=== PATIENT | male | born 1975 | race American Indian/Alaskan Native ===

== ENCOUNTER 2017-04-09 21:18 | Inpatient (IN) | payer OTHER ==
--- NOTE | 2017-04-09 22:17 | Emergency Department Report ---
ED Male HPI - General Chief complaint: Urogenital-Male Stated complaint: FREQ URINATION, BLURRED VISION Time Seen by Provider: 04/09/17 22:14 Source: patient Mode of arrival: Ambulatory Limitations: No Limitations - Related Data Previous Rx's Medication Instructions Recorded Last Taken Type Acetaminophen/Codeine [Tylenol #3] 1 tab PO Q6H PRN #30 tab 11/14/15 Unknown Rx Allergies Allergy/AdvReac Type Severity Reaction Status Date / Time No Known Allergies Allergy Unverified 11/14/15 11:15 ED Review of Systems ROS: Stated complaint: FREQ URINATION, BLURRED VISION Other details as noted in HPI ED Past Medical Hx - Past Medical History Previous Medical History?: No - Surgical History Past Surgical History?: No - Social History Smoking Status: Never Smoker Substance Use Type: None - Medications Home Medications: Home Medications Medication Instructions Recorded Confirmed Last Taken Type Acetaminophen/Codeine [Tylenol #3] 1 tab PO Q6H PRN #30 tab 11/14/15 Unknown Rx ED Physical Exam - General Limitations: No Limitations ED Course Vital Signs 04/09/17 21:46 Temperature 98 F Pulse Rate 81 Respiratory 18 Rate Blood Pressure 157/91 O2 Sat by Pulse 96 Oximetry Critical care attestation.: If time is entered above; I have spent that time in minutes in the direct care of this critically ill patient, excluding procedure time. ED Disposition Condition: Stable
[2017-04-09 22:27] LABS: BUN/Creatinine Ratio 11; Basophils % (Auto) 0.4 % (0.0-1.8); Blood Urea Nitrogen 11 mg/dL (9-20); Calcium 8.9 mg/dL (8.4-10.2); Eosinophils % (Auto) 0.3 % (0.0-4.3); Hematocrit 40.8 % (35.5-45.6); Hemoglobin 13.8 gm/dl (11.8-15.2); Hemolysis Index 16; Lymphocytes # (Auto) 2.1 K/mm3 (1.2-5.4); Lymphocytes % (Auto) 30.7 % (13.4-35.0); Mean Corpuscular HGB Conc 34 % (32-34); Mean Corpuscular Hemoglobin 29 pg (28-32); Mean Corpuscular Volume 85 fl (84-94); Monocytes # (Auto) 0.5 K/mm3 (0.0-0.8); Monocytes % (Auto) 7.5 % (0.0-7.3); Platelet Count 242 K/mm3 (140-440); Red Blood Count 4.79 M/mm3 (3.65-5.03); Red Cell Distribution Width 13.5 % (13.2-15.2)
--- NOTE | 2017-04-09 23:23 | Emergency Department Report ---
ED General Adult HPI - General Chief complaint: Urogenital-Male Stated complaint: FREQ URINATION, BLURRED VISION Time Seen by Provider: 04/09/17 22:14 Source: patient Mode of arrival: Ambulatory Limitations: No Limitations - History of Present Illness Initial comments: Has a family history of diabetes, began to have increased urination and thirst over the past 2 weeks. States he is concerned about being a diabetic. -: week(s) (2) Location: abdomen (GERD) Radiation: non-radiation Severity scale (0 -10): 4 Quality: other (burning) Consistency: constant Improves with: none Worsens with: none Associated Symptoms: nausea/vomiting, weakness Treatments Prior to Arrival: none - Related Data Previous Rx's Medication Instructions Recorded Last Taken Type Acetaminophen/Codeine [Tylenol #3] 1 tab PO Q6H PRN #30 tab 11/14/15 Unknown Rx Allergies Allergy/AdvReac Type Severity Reaction Status Date / Time No Known Allergies Allergy Unverified 11/14/15 11:15 ED Review of Systems ROS: Stated complaint: FREQ URINATION, BLURRED VISION Other details as noted in HPI Comment: All other systems reviewed and negative Constitutional: no symptoms reported Eyes: as per HPI ENT: as per HPI Respiratory: no symptoms reported, see HPI Cardiovascular: as per HPI Endocrine: no symptoms reported, see HPI, increased thirst, increased urine Gastrointestinal: as per HPI Genitourinary: as per HPI Musculoskeletal: as per HPI Skin: as per HPI Neurological: as per HPI Psychiatric: as per HPI Hematological/Lymphatic: as per HPI ED Past Medical Hx - Past Medical History Previous Medical History?: No - Surgical History Past Surgical History?: No - Social History Smoking Status: Never Smoker Substance Use Type: None - Medications Home Medications: Home Medications Medication Instructions Recorded Confirmed Last Taken Type Acetaminophen/Codeine [Tylenol #3] 1 tab PO Q6H PRN #30 tab 11/14/15 Unknown Rx ED Physical Exam - General Limitations: No Limitations General appearance: alert, in no apparent distress - Head Head exam: Present: atraumatic, normocephalic - Eye Eye exam: Present: normal appearance, PERRL, EOMI - ENT ENT exam: Present: normal exam, normal orophraynx, mucous membranes dry, mucous membranes moist - Neck Neck exam: Present: normal inspection - Respiratory Respiratory exam: Present: normal lung sounds bilaterally - Cardiovascular Cardiovascular Exam: Present: regular rate, normal rhythm - GI/Abdominal GI/Abdominal exam: Present: soft, normal bowel sounds - Extremities Exam Extremities exam: Present: normal inspection - Back Exam Back exam: Present: normal inspection - Neurological Exam Neurological exam: Present: alert, oriented X3 - Psychiatric Psychiatric exam: Present: normal affect - Skin Skin exam: Present: warm, dry, intact, normal color ED Course Vital Signs 04/09/17 04/09/17 21:46 22:25 Temperature 98 F 98.6 F Pulse Rate 81 73 Respiratory 18 16 Rate Blood Pressure 157/91 Blood Pressure 145/77 [Left] O2 Sat by Pulse 96 98 Oximetry - Reevaluation(s) Reevaluation #1: 04/09/17 23:34 Discussed need to control his BS with diet exercise and now he will require medications. We can't get serum ketones at the moment due to equipment malfunction, no anion gap noted though, awaiting ABG and UA. Will give insulin IV. Will call hospitalist. ED Medical Decision Making - Lab Data Result diagrams: 04/09/17 21:56 04/09/17 21:56 Critical care attestation.: If time is entered above; I have spent that time in minutes in the direct care of this critically ill patient, excluding procedure time. ED Disposition Clinical Impression: Diabetes mellitus Qualifiers: Diabetes mellitus type: type 2 Diabetes mellitus complication status: with hyperglycemia Diabetes mellitus [facility] insulin use: without salvage determiner use Qualified Code(s): E11.65 - Type 2 diabetes mellitus with hyperglycemia Disposition: 09 OP ADMIT IP TO THIS HOSP Is pt being admited?: Yes Does the pt Need Aspirin: No Condition: Stable Instructions: Diabetes Mellitus Type 2 in Adults (ED)
[2017-04-09] MEDS ORDERED: NACL 0.9% 1000 ML 1,000 ML IV ONE (23:30)
[2017-04-10 00:30] LABS: Bilirubin,Urine NEG (Negative); Blood,Urine NEG (Negative); Color,Urine Red (Yellow); Mucus,Urine FEW /HPF; Nitrite,Urine NEG (Negative); Protein,Urine <15 mg/dL mg/dL (Negative); Urobilinogen,Urine < 2.0 mg/dL (<2.0); WBC,Urine < 1.0 /HPF (0.0-6.0)
[2017-04-10] MEDS ORDERED: D50W (25GM) Syringe IV PRN ×2 (00:30→03:51)
[2017-04-10 00:59] LABS: BUN/Creatinine Ratio 15; Blood Urea Nitrogen 12 mg/dL (9-20); Calcium 9.4 mg/dL (8.4-10.2); Hemolysis Index 9
[2017-04-10] MEDS ORDERED: NovoLIN R 100 UNITS in NACL 0.9% 99 ML IV SCH (01:00)
[2017-04-10 03:04] LABS: BUN/Creatinine Ratio 17; Blood Urea Nitrogen 12 mg/dL (9-20); Calcium 8.9 mg/dL (8.4-10.2); Hemolysis Index 6
--- NOTE | 2017-04-10 03:53 | History and Physical Report ---
History of Present Illness Date of examination: 04/10/17 Date of admission: 04/10/17 01:35 Chief complaint: Polydipsia and polyuria History of present illness: 41-year-old -[place] male with no significant past medical history presented to the emergency department complaining of polyuria and polydipsia for the last 2 weeks. He has been drinking about 2 gallons of water a day. No fever or chills. No chest pain. Family history is significant for diabetes in multiple family members. In the emergency department blood sugar was 755 and anion gap was 23 he started management according to DKA protocol. REVIEW OF SYSTEMS: GENERAL: no weight change, + fatigue, no fever HEAD: no head ache EYES: no blurry vision, no acute visual loss EARS: no hearing loss, no discharge, no earache NOSE: no stuffiness, no sneezing, no discharge MOUTH, THROAT AND NECK: no bleeding gums, no sore throat, no swollen neck CARDIAC: no palpitations, no dyspnea on exertion, no orthopnea, no PND, no edema , no chest pain RESPIRATORY: no shortness of breath, no wheeze, no cough, no sputum, no hemoptysis, no asthma GI: no decreased appetite, no nausea, no vomiting, no dysphagia, no diarrhea, no constipation, no abdominal pain URINARY: no change in frequency, no urgency, no polyuria, no hematuria, no incontinence MUSCULOSKELETAL: no muscle weakness, no pain, no joint stiffness NEUROLOGIC: no loss of sensation/numbness, no tingling, no tremors, no weakness/ paralysis HEMATOLOGIC: no anemia, no easy bruising SKIN: no rashes ENDOCRINE: As stated in the HPI. PSYCHIATRIC: no anxiety, no depression, no suicidal ideations Past History Past Medical History: No medical history Past Surgical History: No surgical history Social history: full code. denies: smoking, alcohol abuse, prescription drug abuse, IV drug use Family history: CAD (Dad heart attack), diabetes (2 brothers) Medications and Allergies Allergies Allergy/AdvReac Type Severity Reaction Status Date / Time No Known Allergies Allergy Verified 04/10/17 00:36 Home Medications Medication Instructions Recorded Confirmed Last Taken Type No Known Home Medications [No 04/10/17 04/10/17 Unknown History Reported Home Medications] Active Meds: Active Medications Dextrose (D50w (25gm) Syringe) 0 ml IV ONCE PRN PRN Reason: Hypoglycemia Insulin Human Regular 100 (units/ Sodium Chloride) 100 mls @ 1 mls/hr IV TITR STACI; 1 UNITS/HR PRN Reason: Protocol Last Titration: 04/10/17 02:30 Dose: 6 units/hr, 6 mls/hr Exam - Constitutional Vitals: Temp Pulse Resp BP Pulse Ox 98.6 F 69 16 118/70 94 04/09/17 22:25 04/10/17 02:01 04/10/17 02:01 04/10/17 02:01 04/10/17 02:01 Results - Labs CBC & Chem 7: 04/09/17 21:56 04/10/17 02:38 Labs: Laboratory Last Values WBC 6.8 K/mm3 (4.5-11.0) 04/09/17 21:56 RBC 4.79 M/mm3 (3.65-5.03) 04/09/17 21:56 Hgb 13.8 gm/dl (11.8-15.2) 04/09/17 21:56 Hct 40.8 % (35.5-45.6) 04/09/17 21:56 MCV 85 fl (84-94) 04/09/17 21:56 MCH 29 pg (28-32) 04/09/17 21:56 MCHC 34 % (32-34) 04/09/17 21:56 RDW 13.5 % (13.2-15.2) 04/09/17 21:56 Plt Count 242 K/mm3 (140-440) 04/09/17 21:56 Lymph % (Auto) 30.7 % (13.4-35.0) 04/09/17 21:56 [place] % (Auto) 7.5 % (0.0-7.3) H 04/09/17 21:56 Eos % (Auto) 0.3 % (0.0-4.3) 04/09/17 21:56 Baso % (Auto) 0.4 % (0.0-1.8) 04/09/17 21:56 Lymph # 2.1 K/mm3 (1.2-5.4) 04/09/17 21:56 [place] # 0.5 K/mm3 (0.0-0.8) 04/09/17 21:56 Eos # 0.0 K/mm3 (0.0-0.4) 04/09/17 21:56 Baso # 0.0 K/mm3 (0.0-0.1) 04/09/17 21:56 Seg Neutrophils % 61.1 % (40.0-70.0) 04/09/17 21:56 Seg Neutrophils # 4.2 K/mm3 (1.8-7.7) 04/09/17 21:56 Sodium 134 mmol/L (137-145) L 04/10/17 02:38 Potassium 3.1 mmol/L (3.6-5.0) L 04/10/17 02:38 Chloride 95.6 mmol/L (98-107) L 04/10/17 02:38 Carbon Dioxide 25 mmol/L (22-30) 04/10/17 02:38 Anion Gap 17 mmol/L 04/10/17 02:38 BUN 12 mg/dL (9-20) 04/10/17 02:38 Creatinine 0.7 mg/dL (0.8-1.5) L 04/10/17 02:38 Estimated GFR > 60 ml/min 04/10/17 02:38 BUN/Creatinine Ratio 17 % 04/10/17 02:38 Glucose 239 mg/dL (75-100) H 04/10/17 02:38 POC Glucose 259 (70-105) H 04/10/17 02:32 Osmolality 306 Mosm/kg 04/10/17 00:20 Lactic Acid 3.30 mmol/L (0.7-2.0) H* 04/10/17 00:31 Calcium 8.9 mg/dL (8.4-10.2) 04/10/17 02:38 Phosphorus 2.90 mg/dL (2.5-4.5) 04/10/17 00:30 Magnesium 1.80 mg/dL (1.7-2.3) 04/10/17 00:30 Urine Color Red (Yellow) 04/09/17 23:08 Urine Turbidity Clear (Clear) 04/09/17 23:08 Urine pH 6.0 (5.0-7.0) 04/09/17 23:08 Ur Specific [place] 1.030 (1.003-1.030) 04/09/17 23:08 Urine Protein <15 mg/dl mg/dL (Negative) 04/09/17 23:08 Urine Glucose (UA) >=500 mg/dL (Negative) 04/09/17 23:08 Urine Ketones Neg mg/dL (Negative) 04/09/17 23:08 Urine Blood Neg (Negative) 04/09/17 23:08 Urine Nitrite Neg (Negative) 04/09/17 23:08 Urine Bilirubin Neg (Negative) 04/09/17 23:08 Urine Urobilinogen < 2.0 mg/dL (<2.0) 04/09/17 23:08 Ur Leukocyte Esterase Neg (Negative) 04/09/17 23:08 Urine WBC (Auto) < 1.0 /HPF (0.0-6.0) 04/09/17 23:08 Urine RBC (Auto) 1.0 /HPF (0.0-6.0) 04/09/17 23:08 Urine Mucus Few /HPF 04/09/17 23:08 Assessment and Plan Assessment and plan: DKA - Patient was managed according to DKA protocol and DKA resolved New onset diabetes mellitus with hyperglycemia - Currently patient is started on sliding-scale insulin, adjust insulin as needed, A1c is pending - Accu-Chek - ADA diet Obesity - Patient counseled about diet and exercise Lactic acidosis - Continue IV fluid DVT prophylaxis - On Lovenox Disposition - Patient was CCU hold, his DKA resolved, he will be admitted to medical floor. The high probability of a clinically significant, sudden or life threatening deterioration of the [Endocrine] system(s) required my full and direct attention , intervention and personal management. The aggregate critical care time was [ 31 ] minutes. This time is in addition to time spent performing reported procedures but includes the following: [x] Data Review and interpretation [x] Patient assessment and monitoring of vital signs [x] Documentation [x] Medication orders and management
[2017-04-10 06:14] LABS: BUN/Creatinine Ratio 17; Blood Urea Nitrogen 12 mg/dL (9-20); Calcium 8.7 mg/dL (8.4-10.2); Hemolysis Index 5
--- NOTE | 2017-04-10 07:23 | Progress Note ---
Assessment and Plan Assessment and plan: --Diabetic ketoacidosis; new onset diabetes Continue insulin drip, titrate per protocol, once blood sugars are reasonable level, when anion gap closes, DC insulin drip and start long-acting insulin ADA diet when an area on gap is normal --New onset diabetes mellitus/hyperglycemia; diabetic education, nutrition consult, managed with Accu-Cheks and sliding scale coverage ADA diet and long- acting insulin --Morbid obesity; BMI 39.4; counseling done advised diet modification and exercise as tolerated and weight reduction --Lactic acidosis; probably secondary to metabolic acidosis and rule out sepsis , closely monitor, IV fluids --DVT prophylaxis; Lovenox --DC planning; possible home health nurse for disease monitoring when medically stable Once insulin drip is discontinued and he may downgrade the patient to medical floor telemetry Patient's condition treatment plan reviewed with the patient and his nurse, verbalized understanding Critical care time 32 minutes The high probability of a clinically significant, sudden or life threatening deterioration of the [Endocrine] system(s) required my full and direct attention , intervention and personal management. The aggregate critical care time was [ 32 ] minutes. This time is in addition to time spent performing reported procedures but includes the following: [x] Data Review and interpretation [x] Patient assessment and monitoring of vital signs [x] Documentation [x] Medication orders and management History Interval history: Patient was admitted with DKA on insulin drip New-onset diabetes mellitus, feels slightly better complaints of generalized weakness and increased thirst Blood sugars are reasonable level Vital signs reviewed Hospitalist Physical - Constitutional Vitals: Temp Pulse Resp BP Pulse Ox 98.6 F 59 L 12 114/68 97 04/09/17 22:25 04/10/17 05:30 04/10/17 05:30 04/10/17 05:30 04/10/17 05:30 General appearance: Present: no acute distress, well-nourished, obese (morbidly obese) - EENT Eyes: Present: PERRL, EOM intact - Neck Neck: Present: supple, normal ROM - Respiratory Respiratory effort: normal Respiratory: bilateral: diminished, negative: rales, rhonchi, wheezing - Cardiovascular Rhythm: regular Heart Sounds: Present: S1 & S2 - Extremities Extremities: no ischemia, No edema - Abdominal General gastrointestinal: soft, non-tender, non-distended, normal bowel sounds - Integumentary Integumentary: Present: clear, warm - Psychiatric Psychiatric: appropriate mood/affect, cooperative - Neurologic Neurologic: CNII-XII intact, moves all extremities Results - Labs CBC & Chem 7: 04/09/17 21:56 04/10/17 16:51 Labs: Laboratory Last Values WBC 6.8 K/mm3 (4.5-11.0) 04/09/17 21:56 RBC 4.79 M/mm3 (3.65-5.03) 04/09/17 21:56 Hgb 13.8 gm/dl (11.8-15.2) 04/09/17 21:56 Hct 40.8 % (35.5-45.6) 04/09/17 21:56 MCV 85 fl (84-94) 04/09/17 21:56 MCH 29 pg (28-32) 04/09/17 21:56 MCHC 34 % (32-34) 04/09/17 21:56 RDW 13.5 % (13.2-15.2) 04/09/17 21:56 Plt Count 242 K/mm3 (140-440) 04/09/17 21:56 Lymph % (Auto) 30.7 % (13.4-35.0) 04/09/17 21:56 [place] % (Auto) 7.5 % (0.0-7.3) H 04/09/17 21:56 Eos % (Auto) 0.3 % (0.0-4.3) 04/09/17 21:56 Baso % (Auto) 0.4 % (0.0-1.8) 04/09/17 21:56 Lymph # 2.1 K/mm3 (1.2-5.4) 04/09/17 21:56 [place] # 0.5 K/mm3 (0.0-0.8) 04/09/17 21:56 Eos # 0.0 K/mm3 (0.0-0.4) 04/09/17 21:56 Baso # 0.0 K/mm3 (0.0-0.1) 04/09/17 21:56 Seg Neutrophils % 61.1 % (40.0-70.0) 04/09/17 21:56 Seg Neutrophils # 4.2 K/mm3 (1.8-7.7) 04/09/17 21:56 Sodium 141 mmol/L (137-145) D 04/10/17 05:29 Potassium 3.4 mmol/L (3.6-5.0) L 04/10/17 05:29 Chloride 101.0 mmol/L (98-107) 04/10/17 05:29 Carbon Dioxide 25 mmol/L (22-30) 04/10/17 05:29 Anion Gap 18 mmol/L 04/10/17 05:29 BUN 12 mg/dL (9-20) 04/10/17 05:29 Creatinine 0.7 mg/dL (0.8-1.5) L 04/10/17 05:29 Estimated GFR > 60 ml/min 04/10/17 05:29 BUN/Creatinine Ratio 17 % 04/10/17 05:29 Glucose 151 mg/dL (75-100) H 04/10/17 05:29 POC Glucose 168 (70-105) H 04/10/17 06:36 Osmolality 306 Mosm/kg 04/10/17 00:20 Lactic Acid 1.20 mmol/L (0.7-2.0) 04/10/17 05:37 Calcium 8.7 mg/dL (8.4-10.2) 04/10/17 05:29 Phosphorus 2.90 mg/dL (2.5-4.5) 04/10/17 00:30 Magnesium 1.80 mg/dL (1.7-2.3) 04/10/17 00:30 Urine Color Red (Yellow) 04/09/17 23:08 Urine Turbidity Clear (Clear) 04/09/17 23:08 Urine pH 6.0 (5.0-7.0) 04/09/17 23:08 Ur Specific [place] 1.030 (1.003-1.030) 04/09/17 23:08 Urine Protein <15 mg/dl mg/dL (Negative) 04/09/17 23:08 Urine Glucose (UA) >=500 mg/dL (Negative) 04/09/17 23:08 Urine Ketones Neg mg/dL (Negative) 04/09/17 23:08 Urine Blood Neg (Negative) 04/09/17 23:08 Urine Nitrite Neg (Negative) 04/09/17 23:08 Urine Bilirubin Neg (Negative) 04/09/17 23:08 Urine Urobilinogen < 2.0 mg/dL (<2.0) 04/09/17 23:08 Ur Leukocyte Esterase Neg (Negative) 04/09/17 23:08 Urine WBC (Auto) < 1.0 /HPF (0.0-6.0) 04/09/17 23:08 Urine RBC (Auto) 1.0 /HPF (0.0-6.0) 04/09/17 23:08 Urine Mucus Few /HPF 04/09/17 23:08
[2017-04-10 07:59] LABS: BUN/Creatinine Ratio 15; Blood Urea Nitrogen 12 mg/dL (9-20); Calcium 8.5 mg/dL (8.4-10.2); Hemolysis Index 2
[2017-04-10] MEDS: K-DUR PO SCH (10:50)
--- NOTE | 2017-04-10 12:56 | Consultation ---
History of Present Illness Consult date: 04/10/17 Requesting physician: JOSELITO SZYMANSKI Reason for consult: other (DKA) History of present illness: PULMONARY/CCM CONSULT NOTE (Full dictation # ) Please see dictated notes for full details Past History Past Medical History: No medical history Past Surgical History: No surgical history Social history: full code. denies: smoking, alcohol abuse, prescription drug abuse, IV drug use Family history: CAD (Dad heart attack), diabetes (2 brothers) Medications and Allergies Allergies Allergy/AdvReac Type Severity Reaction Status Date / Time No Known Allergies Allergy Verified 04/10/17 00:36 Home Medications Medication Instructions Recorded Confirmed Last Taken Type No Known Home Medications [No 04/10/17 04/10/17 Unknown History Reported Home Medications] Active Meds: Active Medications Dextrose (D50w (25gm) Syringe) 50 ml IV PRN PRN PRN Reason: Hypoglycemia Sodium Chloride (Nacl 0.9% 1000 Ml) 1,000 mls @ 150 mls/hr IV DIRECT STACI Insulin Human Regular (Novolin R) 0 units SUB-Q ACHS STACI PRN Reason: Protocol Last Admin: 04/10/17 09:00 Dose: 4 units Potassium Chloride (K-Dur) 40 meq PO QDAY STACI Last Admin: 04/10/17 10:50 Dose: 40 meq Physical Examination Vital signs: Vital Signs Temp Pulse Resp BP Pulse Ox 98 F 81 18 157/91 96 04/09/17 21:46 04/09/17 21:46 04/09/17 21:46 04/09/17 21:46 04/09/17 21:46 Results - Laboratory Findings CBC and BMP: 04/09/17 21:56 04/10/17 07:21 Abnormal lab findings: Abnormal Labs 04/09/17 04/09/17 04/09/17 21:54 21:56 21:56 [place] % (Auto) 7.5 H Sodium 124 L Potassium Chloride 85.5 L Carbon Dioxide 20 L Creatinine Glucose 775 H* POC Glucose > 500 H Lactic Acid 04/10/17 04/10/17 04/10/17 00:30 00:31 02:32 [place] % (Auto) Sodium 134 L D Potassium 3.5 L Chloride 94.2 L Carbon Dioxide Creatinine Glucose 326 H POC Glucose 259 H Lactic Acid 3.30 H* 0104/10/17 04/10/17 02:38 04:13 05:29 [place] % (Auto) Sodium 134 L Potassium 3.1 L 3.4 L Chloride 95.6 L Carbon Dioxide Creatinine 0.7 L 0.7 L Glucose 239 H 151 H POC Glucose 106 H Lactic Acid 04/10/17 04/10/17 04/10/17 06:36 07:21 08:43 [place] % (Auto) Sodium Potassium Chloride Carbon Dioxide Creatinine Glucose 186 H POC Glucose 168 H 221 H Lactic Acid
[2017-04-10] MEDS ORDERED: SODIUM BICARBONATE FEEDTUBE PRN (14:31)
[2017-04-10] MEDS ORDERED: PANCREAZE DR 10,500 UNIT FEEDTUBE PRN (14:31)
[2017-04-10] MEDS ORDERED: SIMPLE SYRUP FEEDTUBE PRN ×2 (14:31)
[2017-04-10 17:23] LABS: BUN/Creatinine Ratio 20; Blood Urea Nitrogen 12 mg/dL (9-20); Calcium 8.5 mg/dL (8.4-10.2); Hemolysis Index 7
[2017-04-10] MEDS: NOVOLOG SUB-Q SCH ×2 (18:15→22:38)
[2017-04-10] MEDS: NACL 0.9% 1000 ML 1,000 ML IV SCH (22:38)
[2017-04-11 01:11] LABS: BUN/Creatinine Ratio 16; Blood Urea Nitrogen 11 mg/dL (9-20); Calcium 8.6 mg/dL (8.4-10.2); Hemolysis Index 13
[2017-04-11 05:27] LABS: BUN/Creatinine Ratio 16; Blood Urea Nitrogen 11 mg/dL (9-20); Calcium 8.6 mg/dL (8.4-10.2); Hemolysis Index 3
[2017-04-11] MEDS ORDERED: K-DUR PO ONE (07:40)
--- NOTE | 2017-04-11 09:05 | Progress Note ---
Assessment and Plan Assessment and plan: --Diabetic ketoacidosis; new onset diabetes Recent blood sugars are reasonable level, tolerating oral diet, anion gap closed , DC insulin drip, add long-acting Novolin 70/30, ADA diet, sliding scale coverage Hemoglobin A1c 12.3, diabetic education, nutrition consult --New onset DM2/hyperglycemia; diabetic education, nutrition consult, managed with Accu-Cheks and sliding scale coverage ADA diet and long-acting insulin --Morbid obesity; BMI 39.4; counseling done advised diet modification and exercise as tolerated and weight reduction --Lactic acidosis; probably secondary to metabolic acidosis and rule out sepsis , closely monitor, IV fluids --DVT prophylaxis; Lovenox --DC planning; possible home health nurse for disease monitoring when medically stable Once insulin drip is discontinued and he may downgrade the patient to medical floor telemetry Patient's condition treatment plan reviewed with the patient and his nurse, verbalized understanding Critical care time 31minutes The high probability of a clinically significant, sudden or life threatening deterioration of the [Endocrine] system(s) required my full and direct attention , intervention and personal management. The aggregate critical care time was [ 31 ] minutes. This time is in addition to time spent performing reported procedures but includes the following: [x] Data Review and interpretation [x] Patient assessment and monitoring of vital signs [x] Documentation [x] Medication orders and management Downgrade to medical floor History Interval history: Patient seen and evaluated medical records reviewed Patient feels better, blood sugars are reasonable control Will DC insulin drip, start long-acting 7030 Novolin Diabetic education, nutrition consultation Patient feels better no new complaints Vital signs reviewed Hospitalist Physical - Constitutional Vitals: Temp Pulse Resp BP Pulse Ox 98.6 F 57 L 16 96/32 96 04/09/17 22:25 04/11/17 07:30 04/11/17 08:02 04/11/17 07:30 04/11/17 07:30 General appearance: Present: no acute distress, well-nourished, obese (morbidly obese) - EENT Eyes: Present: PERRL, EOM intact - Neck Neck: Present: supple, normal ROM - Respiratory Respiratory effort: normal Respiratory: bilateral: diminished, negative: rales, rhonchi, wheezing - Cardiovascular Rhythm: regular Heart Sounds: Present: S1 & S2 - Extremities Extremities: no ischemia, No edema - Abdominal General gastrointestinal: soft, non-tender, non-distended, normal bowel sounds - Integumentary Integumentary: Present: clear, warm - Psychiatric Psychiatric: appropriate mood/affect, cooperative - Neurologic Neurologic: CNII-XII intact, moves all extremities Results - Labs CBC & Chem 7: 04/09/17 21:56 04/11/17 04:00 Labs: Laboratory Last Values WBC 6.8 K/mm3 (4.5-11.0) 04/09/17 21:56 RBC 4.79 M/mm3 (3.65-5.03) 04/09/17 21:56 Hgb 13.8 gm/dl (11.8-15.2) 04/09/17 21:56 Hct 40.8 % (35.5-45.6) 04/09/17 21:56 MCV 85 fl (84-94) 04/09/17 21:56 MCH 29 pg (28-32) 04/09/17 21:56 MCHC 34 % (32-34) 04/09/17 21:56 RDW 13.5 % (13.2-15.2) 04/09/17 21:56 Plt Count 242 K/mm3 (140-440) 04/09/17 21:56 Lymph % (Auto) 30.7 % (13.4-35.0) 04/09/17 21:56 [place] % (Auto) 7.5 % (0.0-7.3) H 04/09/17 21:56 Eos % (Auto) 0.3 % (0.0-4.3) 04/09/17 21:56 Baso % (Auto) 0.4 % (0.0-1.8) 04/09/17 21:56 Lymph # 2.1 K/mm3 (1.2-5.4) 04/09/17 21:56 [place] # 0.5 K/mm3 (0.0-0.8) 04/09/17 21:56 Eos # 0.0 K/mm3 (0.0-0.4) 04/09/17 21:56 Baso # 0.0 K/mm3 (0.0-0.1) 04/09/17 21:56 Seg Neutrophils % 61.1 % (40.0-70.0) 04/09/17 21:56 Seg Neutrophils # 4.2 K/mm3 (1.8-7.7) 04/09/17 21:56 Sodium 138 mmol/L (137-145) 04/11/17 04:00 Potassium 3.2 mmol/L (3.6-5.0) L 04/11/17 04:00 Chloride 100.2 mmol/L (98-107) 04/11/17 04:00 Carbon Dioxide 25 mmol/L (22-30) 04/11/17 04:00 Anion Gap 16 mmol/L 04/11/17 04:00 BUN 11 mg/dL (9-20) 04/11/17 04:00 Creatinine 0.7 mg/dL (0.8-1.5) L 04/11/17 04:00 Estimated GFR > 60 ml/min 04/11/17 04:00 BUN/Creatinine Ratio 16 % 04/11/17 04:00 Glucose 161 mg/dL (75-100) H 04/11/17 04:00 POC Glucose 120 (70-105) H 04/11/17 08:02 Osmolality 306 Mosm/kg 04/10/17 00:20 Lactic Acid 1.20 mmol/L (0.7-2.0) 04/10/17 05:37 Calcium 8.6 mg/dL (8.4-10.2) 04/11/17 04:00 Phosphorus 2.80 mg/dL (2.5-4.5) 04/11/17 04:00 Magnesium 2.00 mg/dL (1.7-2.3) 04/11/17 04:00 Urine Color Red (Yellow) 04/09/17 23:08 Urine Turbidity Clear (Clear) 04/09/17 23:08 Urine pH 6.0 (5.0-7.0) 04/09/17 23:08 Ur Specific [place] 1.030 (1.003-1.030) 04/09/17 23:08 Urine Protein <15 mg/dl mg/dL (Negative) 04/09/17 23:08 Urine Glucose (UA) >=500 mg/dL (Negative) 04/09/17 23:08 Urine Ketones Neg mg/dL (Negative) 04/09/17 23:08 Urine Blood Neg (Negative) 04/09/17 23:08 Urine Nitrite Neg (Negative) 04/09/17 23:08 Urine Bilirubin Neg (Negative) 04/09/17 23:08 Urine Urobilinogen < 2.0 mg/dL (<2.0) 04/09/17 23:08 Ur Leukocyte Esterase Neg (Negative) 04/09/17 23:08 Urine WBC (Auto) < 1.0 /HPF (0.0-6.0) 04/09/17 23:08 Urine RBC (Auto) 1.0 /HPF (0.0-6.0) 04/09/17 23:08 Urine Mucus Few /HPF 04/09/17 23:08
[2017-04-11] MEDS: K-DUR PO SCH (10:36)
[2017-04-11 11:19] LABS: Chol/HDL Ratio 5.36 %
[2017-04-11] MEDS: NOVOLOG SUB-Q SCH ×4 (12:04→22:33)
[2017-04-11] MEDS: NACL 0.9% 1000 ML 1,000 ML IV SCH (19:28)
--- NOTE | 2017-04-11 22:31 | Event Note ---
Date: 04/11/17 41 year old man admitted with DKA, new onset. Recent blood sugars are reasonable level, tolerating oral diet, anion gap closed , DC insulin drip, add long-acting Novolin 70/30, ADA diet, sliding scale coverage Hemoglobin A1c 12.3, diabetic education, nutrition consult New onset DM2/hyperglycemia; diabetic education, nutrition consult, managed with Accu-Cheks and sliding scale coverage ADA diet and long-acting insulin Morbid obesity; BMI 39.4; counseling done advised diet modification and exercise as tolerated and weight reduction Lactic acidosis; probably secondary to metabolic acidosis and rule out sepsis, closely monitor, IV fluids Continue all current therapies. discharge planning has been initiated
[2017-04-12] MEDS: NACL 0.9% 1000 ML 1,000 ML IV SCH ×2 (02:39→21:59)
[2017-04-12 06:36] LABS: Basophils % (Auto) 0.5 % (0.0-1.8); Eosinophils % (Auto) 0.7 % (0.0-4.3); Hematocrit 42.5 % (35.5-45.6); Hemoglobin 14.4 gm/dl (11.8-15.2); Lymphocytes # (Auto) 3.1 K/mm3 (1.2-5.4); Lymphocytes % (Auto) 45.4 % (13.4-35.0); Mean Corpuscular HGB Conc 34 % (32-34); Mean Corpuscular Hemoglobin 29 pg (28-32); Mean Corpuscular Volume 85 fl (84-94); Monocytes # (Auto) 0.6 K/mm3 (0.0-0.8); Monocytes % (Auto) 8.3 % (0.0-7.3); Platelet Count 234 K/mm3 (140-440); Red Blood Count 5.02 M/mm3 (3.65-5.03); Red Cell Distribution Width 13.1 % (13.2-15.2)
[2017-04-12 06:53] LABS: Alanine Aminotransferase 29 units/L (7-56); Albumin 3.1 g/dL (3.9-5); BUN/Creatinine Ratio 12; Blood Urea Nitrogen 7 mg/dL (9-20); Calcium 8.4 mg/dL (8.4-10.2); Hemolysis Index 6
[2017-04-12] MEDS: NOVOLOG SUB-Q SCH ×4 (07:30→21:53)
[2017-04-12] MEDS ORDERED: K-DUR PO NR (08:45)
[2017-04-12] MEDS: K-DUR PO SCH (10:45)
--- NOTE | 2017-04-12 14:50 | Progress Note ---
Assessment and Plan Assessment and plan: --Diabetic ketoacidosis; new onset diabetes DKA Resolved, continue Accu-Cheks , sliding scale coverage , ADA diet, long- acting Novolin 70/30,Hemoglobin A1c 12.3, diabetic education, nutrition consult --Morbid obesity; BMI 39.4; counseling done advised diet modification and exercise as tolerated and weight reduction --Lactic acidosis; probably secondary to metabolic acidosis and rule out sepsis , closely monitor, IV fluids --DVT prophylaxis; Lovenox --DC planning; possible home health nurse for disease monitoring , possible discharge home tomorrow if stable Patient's condition treatment plan reviewed with the patient and his nurse, verbalized understanding History Interval history: Patient seen and evaluated medical records reviewed Blood sugars are brought to reasonable levels on insulin Patient feels better no new complaints Vital signs stable Hospitalist Physical - Constitutional Vitals: Temp Pulse Resp BP Pulse Ox 97.7 F 56 L 20 119/75 98 04/12/17 07:26 04/12/17 07:26 04/12/17 10:00 04/12/17 07:26 04/12/17 07:26 General appearance: Present: no acute distress, well-nourished, obese (morbidly obese) - EENT Eyes: Present: PERRL, EOM intact - Neck Neck: Present: supple, normal ROM - Respiratory Respiratory effort: normal Respiratory: bilateral: diminished, negative: rales, rhonchi, wheezing - Cardiovascular Rhythm: regular Heart Sounds: Present: S1 & S2 - Extremities Extremities: no ischemia, No edema - Abdominal General gastrointestinal: soft, non-tender, non-distended, normal bowel sounds - Integumentary Integumentary: Present: clear, warm - Psychiatric Psychiatric: appropriate mood/affect, cooperative - Neurologic Neurologic: CNII-XII intact, moves all extremities Results - Labs CBC & Chem 7: 04/12/17 05:27 04/12/17 05:27 Labs: Laboratory Last Values WBC 6.9 K/mm3 (4.5-11.0) 04/12/17 05:27 RBC 5.02 M/mm3 (3.65-5.03) 04/12/17 05:27 Hgb 14.4 gm/dl (11.8-15.2) 04/12/17 05:27 Hct 42.5 % (35.5-45.6) 04/12/17 05:27 MCV 85 fl (84-94) 04/12/17 05:27 MCH 29 pg (28-32) 04/12/17 05:27 MCHC 34 % (32-34) 04/12/17 05:27 RDW 13.1 % (13.2-15.2) L 04/12/17 05:27 Plt Count 234 K/mm3 (140-440) 04/12/17 05:27 Lymph % (Auto) 45.4 % (13.4-35.0) H 04/12/17 05:27 [place] % (Auto) 8.3 % (0.0-7.3) H 04/12/17 05:27 Eos % (Auto) 0.7 % (0.0-4.3) 04/12/17 05:27 Baso % (Auto) 0.5 % (0.0-1.8) 04/12/17 05:27 Lymph # 3.1 K/mm3 (1.2-5.4) 04/12/17 05:27 [place] # 0.6 K/mm3 (0.0-0.8) 04/12/17 05:27 Eos # 0.0 K/mm3 (0.0-0.4) 04/12/17 05:27 Baso # 0.0 K/mm3 (0.0-0.1) 04/12/17 05:27 Seg Neutrophils % 45.1 % (40.0-70.0) 04/12/17 05:27 Seg Neutrophils # 3.1 K/mm3 (1.8-7.7) 04/12/17 05:27 Sodium 141 mmol/L (137-145) 04/12/17 05:27 Potassium 3.5 mmol/L (3.6-5.0) L 04/12/17 05:27 Chloride 104.0 mmol/L (98-107) 04/12/17 05:27 Carbon Dioxide 23 mmol/L (22-30) 04/12/17 05:27 Anion Gap 18 mmol/L 04/12/17 05:27 BUN 7 mg/dL (9-20) L 04/12/17 05:27 Creatinine 0.6 mg/dL (0.8-1.5) L 04/12/17 05:27 Estimated GFR > 60 ml/min 04/12/17 05:27 BUN/Creatinine Ratio 12 % 04/12/17 05:27 Glucose 129 mg/dL (75-100) H 04/12/17 05:27 POC Glucose 286 (70-105) H 04/12/17 12:11 Hemoglobin A1c 12.3 % (4-6) H 04/11/17 10:30 Osmolality 306 Mosm/kg 04/10/17 00:20 Lactic Acid 1.20 mmol/L (0.7-2.0) 04/10/17 05:37 Calcium 8.4 mg/dL (8.4-10.2) 04/12/17 05:27 Phosphorus 3.40 mg/dL (2.5-4.5) D 04/12/17 05:27 Magnesium 1.90 mg/dL (1.7-2.3) 04/12/17 05:27 Total Bilirubin 0.50 mg/dL (0.1-1.2) 04/12/17 05:27 AST 23 units/L (5-40) 04/12/17 05:27 ALT 29 units/L (7-56) 04/12/17 05:27 Alkaline Phosphatase 96 units/L (35-129) 04/12/17 05:27 Total Protein 6.2 g/dL (6.3-8.2) L 04/12/17 05:27 Albumin 3.1 g/dL (3.9-5) L 04/12/17 05:27 Albumin/Globulin Ratio 1.0 % 04/12/17 05:27 Triglycerides 137 mg/dL (2-149) 04/11/17 10:30 Cholesterol 161 mg/dL (50-199) 04/11/17 10:30 LDL Cholesterol Direct 104 mg/dL (50-130) 04/11/17 10:30 HDL Cholesterol 30 mg/dL (40-59) L 04/11/17 10:30 Cholesterol/HDL Ratio 5.36 % 04/11/17 10:30 Urine Color Red (Yellow) 04/09/17 23:08 Urine Turbidity Clear (Clear) 04/09/17 23:08 Urine pH 6.0 (5.0-7.0) 04/09/17 23:08 Ur Specific [place] 1.030 (1.003-1.030) 04/09/17 23:08 Urine Protein <15 mg/dl mg/dL (Negative) 04/09/17 23:08 Urine Glucose (UA) >=500 mg/dL (Negative) 04/09/17 23:08 Urine Ketones Neg mg/dL (Negative) 04/09/17 23:08 Urine Blood Neg (Negative) 04/09/17 23:08 Urine Nitrite Neg (Negative) 04/09/17 23:08 Urine Bilirubin Neg (Negative) 04/09/17 23:08 Urine Urobilinogen < 2.0 mg/dL (<2.0) 04/09/17 23:08 Ur Leukocyte Esterase Neg (Negative) 04/09/17 23:08 Urine WBC (Auto) < 1.0 /HPF (0.0-6.0) 04/09/17 23:08 Urine RBC (Auto) 1.0 /HPF (0.0-6.0) 04/09/17 23:08 Urine Mucus Few /HPF 04/09/17 23:08
[2017-04-13 05:45] LABS: BUN/Creatinine Ratio 11; Blood Urea Nitrogen 8 mg/dL (9-20); Calcium 8.7 mg/dL (8.4-10.2); Hemolysis Index 6
[2017-04-13] MEDS: NACL 0.9% 1000 ML 1,000 ML IV SCH (07:27)
[2017-04-13] MEDS: NOVOLOG SUB-Q SCH ×3 (07:31→17:48)
[2017-04-13] MEDS: K-DUR PO SCH (09:09)
--- NOTE | 2017-04-13 09:35 | Discharge Summary ---
Providers - Providers Date of Admission: 04/10/17 01:35 Date of discharge: 04/13/17 Attending physician: ELHAM ALBA 04/10/17 00:30 Consult to Case Management [CONS] Routine Services Needed at Discharge: Other Notified:: tank 04/10/17 01:45 Consult to Physician [CONS] Routine Consulting Provider: LILLY CHEEMA Reason For Exam: ccu Place consult to:: Dr. Cheema Notified:: Answering Service Phone number called:: [phone] Was contact made?: Yes If yes, spoke with:: Jack Time called:: 01:53 04/10/17 19:02 Consult to Dietitian/Nutrition [CONS] Routine Physician Instructions: Reason For Exam: diabetic education Reason for Consult: Diet education Primary care physician: JOSE AUSTIN Hospitalization Condition: Stable Hospital course: --Diabetic ketoacidosis; new onset diabetes DKA Resolved, continue Accu-Cheks , sliding scale coverage , ADA diet, long- acting Novolin 70/30,Hemoglobin A1c 12.3, diabetic education, nutrition consult --Morbid obesity; BMI 39.4; counseling done advised diet modification and exercise as tolerated and weight reduction --Lactic acidosis; probably secondary to metabolic acidosis and rule out sepsis , closely monitor, IV fluids --DVT prophylaxis; Lovenox --DC planning; possible home health nurse for disease monitoring , possible discharge home tomorrow if stable Patient's condition treatment plan reviewed with the patient and his nurse, verbalized understanding Disposition: DC-01 TO HOME OR SELFCARE Time spent for discharge: 32 min Core Measure Documentation - Palliative Care Palliative Care/ Comfort Measures: Not Applicable - Core Measures Any of the following diagnoses?: none Exam - Constitutional Vitals: Temp Pulse Resp BP Pulse Ox 97.8 F 57 L 18 98/50 95 04/13/17 07:22 04/13/17 07:22 04/13/17 07:22 04/13/17 07:22 04/13/17 07:22 General appearance: Present: no acute distress, well-nourished, obese (morbid obesity) - EENT Eyes: Present: PERRL, EOM intact - Neck Neck: Present: supple, normal ROM - Respiratory Respiratory effort: normal Respiratory: bilateral: diminished, negative: rales, rhonchi, wheezing - Cardiovascular Rhythm: regular Heart Sounds: Present: S1 & S2 - Extremities Extremities: no ischemia, No edema - Abdominal General gastrointestinal: Present: soft, non-tender, non-distended, normal bowel sounds - Integumentary Integumentary: Present: clear, warm - Musculoskeletal Musculoskeletal: strength equal bilaterally - Psychiatric Psychiatric: appropriate mood/affect, cooperative - Neurologic Neurologic: CNII-XII intact, moves all extremities Plan Activity: no restrictions Diet: diabetic Additional Instructions: Exercise as tolerated and weight reduction Follow up with: JOSE AUSTIN MD [Primary Care Provider] - 7 Days JAMI GAMBLE MD [Staff Physician] - 7 Days Forms: Work/School Release Form Prescriptions: Insulin NPH/Regular [NovoLIN 70/30] 18 unit SUB-Q BIDDIAB 30 Days units Insulin Regular, Human [Novolin R] See Protocol SC ACHS 30 Days vial Other Discharge Orders: Glucometer (Amb) Location: Determined By Patient Glucometer supplies[Amb] Location: Determined By Patient
[2017-04-13 16:04] VITALS: BP 113/63
== END 2017-04-13 17:50 | disposition home or self-care (01) | DRG 871 ==
LOC: ED 21:18 → CC1 04-10 01:35 → 3A 04-11 06:52
PROVIDERS: ADMIT Internal Medicine; ATTEND Internal Medicine
DX: A41.9 Sepsis, unspecified organism (principal); E11.10 Type 2 diabetes mellitus with ketoacidosis without coma; E66.01 Morbid (severe) obesity due to excess calories; Z68.39 Body mass index [BMI] 39.0-39.9, adult; Z71.3 Dietary counseling and surveillance; Z83.3 Family history of diabetes mellitus; Z82.49 Family history of ischemic heart disease and other diseases of the circulatory system
CPT/HCPCS: 36415; 80048; 80053; 80061; 81001; 82140; 82962; 83036; 83735; 83930; 84100; 85025; 96365; 96372; 96376; J1815; J7030